=== PATIENT | female | born 1990 | race Caucasian/White ===

== ENCOUNTER 2017-08-31 20:56 | Emergency (ER) | payer OTHER ==
[2017-08-31 21:06] VITALS: BP 145/67; PULSE 98; TEMP 97.1; BMI 21.2
[2017-08-31] MEDS ORDERED: AMOX TR/POT CLAV 875MG/125MG TABLETS (FP) PO ONE (21:48)
[2017-08-31] MEDS ORDERED: IBUPROFEN 400 MG TABLET (FP) PO ONE ×2 (21:48→21:50)
[2017-08-31] MEDS ORDERED: guaiFENesin/CODEINE 10 ML UNIT-DOSE CUPS PO ONE (21:48)
[2017-08-31] MEDS ORDERED: AMOX TR/POT CLAV 875MG/125MG TABLETS (FP) ONE (21:50)
--- NOTE | 2017-08-31 21:55 | PDOC ---
History of Present Illness - General Chief Complaint: Cold Symptoms Stated Complaint: COLD SYMPTOMS Time Seen by Provider: 08/31/17 21:28 History Source: Patient Exam Limitations: No Limitations - History of Present Illness Initial Comments: 08/31/17 22:48 Patient is a 26-year-old female no past medical history who presents with 2 weeks of cough and headache. Patient states that she has tried Tylenol with little relief. She states that the cough is keeping her up at night. She admits to postnasal drip and congestion. She states that she also has a frontal headache due to her congestion. Denies fevers, chills, sore throat, ear pain, chest pain, shortness of breath, difficulty breathing, nausea, vomiting and diarrhea. Past History - Travel Traveled outside of the country in the last 30 days: No Close contact w/someone who was outside of country & ill: No - Past Medical History Allergies/Adverse Reactions: Allergies Allergy/AdvReac Type Severity Reaction Status Date / Time No Known Allergies Allergy Verified 08/31/17 21:06 Home Medications: Ambulatory Orders Amoxicillin/Potassium Clav [Augmentin 875-125 Tablet] 1 each PO BID #14 tablet 08/31/17 Guaifenesin AC [Robitussin AC] 10 ml PO HS #100 ud MDD 1 08/31/17 Ibuprofen 800 mg PO TID #30 tablet 08/31/17 - Suicide/Smoking/Psychosocial Hx Smoking History: Never smoked Have you smoked in the past 12 months: No Information on smoking cessation initiated: No Hx Alcohol Use: No Drug/Substance Use Hx: No Review of Systems - Review of Systems Able to Perform ROS?: Yes Comments:: 08/31/17 22:50 CONSTITUTIONAL: Absent: fever, chills, diaphoresis, generalized weakness, malaise, loss of appetite HEENT: Present: congestion, rhinorrhea Absent: throat pain, throat swelling, difficulty swallowing, mouth swelling, ear pain, eye pain, visual Changes CARDIOVASCULAR: Absent: chest pain, loss of consciousness, palpitations, irregular heart rate, peripheral edema RESPIRATORY: Present: cough Absent: cough, shortness of breath, dyspnea with exertion, orthopnea, wheezing, stridor, hemoptysis GASTROINTESTINAL: Absent: abdominal pain, abdominal distension, nausea, vomiting, diarrhea, constipation, melena, hematochezia GENITOURINARY: Absent: dysuria, frequency, urgency, hesitancy, hematuria, flank pain, genital pain MUSCULOSKELETAL: Absent: myalgia, arthralgia, joint swelling SKIN: Absent: rash, itching, pallor HEMATOLOGIC/IMMUNOLOGIC: Absent: easy bleeding, easy bruising, lymphadenopathy, frequent infections ENDOCRINE: Absent: unexplained weight gain, unexplained weight loss, heat intolerance, cold intolerance NEUROLOGIC: Present: headache Absent:focal weakness or paresthesias, dizziness, unsteady gait, seizure, mental status changes, bladder or bowel incontinence PSYCHIATRIC: Absent: anxiety, depression, suicidal or homicidal ideation, hallucinations. Is the patient limited Danish proficient: No *Physical Exam - Vital Signs Last Vital Signs Temp Pulse Resp BP Pulse Ox 97.1 F L 98 H 16 145/67 100 08/31/17 21:04 08/31/17 21:04 08/31/17 21:04 08/31/17 21:04 08/31/17 21:04 - Physical Exam Comments: 08/31/17 22:51 GENERAL: Well developed, well nourished. Awake and alert. No acute distress. Actively dry coughing HEENT: Normocephalic, atraumatic. TTP of the frontal sinuses. PERRLA, EOMI. No conjunctival pallor. Sclera are non-icteric. Moist mucous membranes. Oropharynx is clear. NECK: Supple. Full ROM. No JVD. Carotid pulses 2+ and symmetric, without bruits. No thyromegaly. No lymphadenopathy. CARDIOVASCULAR: Regular rate and rhythm. No murmurs, rubs, or gallops. Distal pulses are 2+ and symmetric. PULMONARY: No evidence of respiratory distress. Lungs clear to auscultation bilaterally. No wheezing, rales or rhonchi. ABDOMINAL: Soft. Non-tender. Non-distended. No rebound or guarding. No organomegaly. Normoactive bowel sounds. MUSCULOSKELETAL Normal range of motion at all joints. No bony deformities or tenderness. No CVA tenderness. EXTREMITIES: No cyanosis. No clubbing. No edema. No calf tenderness. SKIN: Warm and dry. Normal capillary refill. No rashes. No jaundice. NEUROLOGICAL: Alert, awake, appropriate. Cranial nerves 2-12 intact. No deficits to light touch and temperature in face, upper extremities and lower extremities. No motor deficits in the in face, upper extremities and lower extremities. Normoreflexic in the upper and lower extremities. Normal speech. Toes are down- going bilaterally. Gait is normal without ataxia. PSYCHIATRIC: Cooperative. Good eye contact. Appropriate mood and affect. Medical Decision Making - Medical Decision Making 08/31/17 22:51 Patient is a 26-year-old female with no past medical history, who [facility] with 2 weeks of sinusitis-like symptoms. Given length of symptoms we'll treat empirically with Augmentin at this time. Patient also given an albuterol inhaler to help with the cough. We'll discharge home at this time. Patient understands all discharge instructions and all questions were answered at this time. *DC/Admit/Observation/Transfer Diagnosis at time of Disposition: Sinusitis Qualifiers: Sinusitis location: frontal Chronicity: acute Recurrence: non-recurrent Qualified Code(s): J01.10 - Acute frontal sinusitis, unspecified - Discharge Dispostion Disposition: HOME Condition at time of disposition: Good Admit: No - Prescriptions Prescriptions: Amoxicillin/Potassium Clav [Augmentin 875-125 Tablet] 1 each PO BID #14 tablet Guaifenesin AC [Robitussin AC] 10 ml PO HS #100 ud MDD 1 Ibuprofen 800 mg PO TID #30 tablet - Referrals Referrals: Queta Mcgovern MD [Primary Care Provider] - Jelani Spicer MD [Staff Physician] - - Patient Instructions Printed Discharge Instructions: DI for Sinusitis Additional Instructions: You have a sinus infection. Please take the amoxicillin twice a day for one week. He may also take 800 mg of Motrin 3 times a day to help with any body aches. Please take the Mucinex you have at home during the day. You were also prescribed Robitussin AC. Please take this medication at nighttime to help with your cough. Do not drive or operate heavy machinery after taking this medication as it may make you sleepy. Please drink plenty of fluids and get plenty of rest. Follow up with her primary care doctor in 1 week. Return to the emergency department if you have worsening pain, difficulty breathing, shortness of breath, or any changes in her symptoms. Usted tiene reece infeccin sinusal. Por favor tome la amoxicilina dos veces al d a magnus reece semana. Tambin puede oz 800 mg de Motrin 3 veces al da para ayudar con cualquier dolor en el cuerpo. Por favor tome el Mucinex que tiene en casa magnus el da. Isidra le recetaron Robitussin AC. Por favor, tome kelsea medicamento por la noche para ayudar con la tos. No conduzca ni maneje maquinaria pesada despus de oz kelsea medicamento, ya que puede causarle yisel o. Por favor, tome muchos lquidos y descanse lo suficiente. Nikki un seguimiento con ovalle mdico de atencin primaria en 1 semana. Regrese al servicio de urgencias si tiene un empeoramiento del dolor, dificultad para respirar, dificultad para respirar o cualquier cambio en derek s ntomas. Print Language: BAHAMIAN - Post Discharge Activity Forms/Work/School Notes: Back to Work
[2017-08-31] MEDS ORDERED: guaiFENesin/CODEINE 5 ML UNIT-DOSE CUPS PO ONE (21:59)
== END 2017-08-31 22:06 | disposition home or self-care (01) ==
LOC: JERFT 20:56
DX: J01.10 Acute frontal sinusitis, unspecified (principal)
CPT/HCPCS: 99281-25

== ENCOUNTER 2018-08-18 20:27 | Emergency (ER) | payer OTHER ==
[2018-08-18 21:02] VITALS: BP 135/67; PULSE 97; TEMP 98.4; BMI 20.7
[2018-08-18 21:34] LABS: URINE APPEARANCE CLOUDY; URINE BILIRUBIN NEGATIVE (<2.0 mg/dL); URINE COLOR YELLOW; URINE GLUCOSE (UA) 1+ (NEGATIVE); URINE KETONE 1+ (NEGATIVE); URINE LEUK ESTERASE TRACE (NEGATIVE); URINE NITRITE NEGATIVE (NEGATIVE); URINE PROTEIN NEGATIVE (NEGATIVE); URINE UROBILINOGEN NEGATIVE mg/dL (0.2-1.0)
--- NOTE | 2018-08-18 21:59 | PDOC ---
History of Present Illness - General Chief Complaint: Pain Stated Complaint: 8 WEEKS ABD PAIN Time Seen by Provider: 08/18/18 21:47 - History of Present Illness Initial Comments: 08/19/18 00:21 27-year-old female complaining of pelvic pain for 1 day. Patient reports that she had a positive urine in [address] [place] [address]. Denies vaginal bleeding/vaginal discharge nausea, vomiting. Past History - Past Medical History Allergies/Adverse Reactions: Allergies Allergy/AdvReac Type Severity Reaction Status Date / Time No Known Allergies Allergy Verified 08/18/18 22:49 Home Medications: Ambulatory Orders NK [No Known Home Medication] 08/18/18 Prenat 115/Iron Fum/Folic/Dss [ 19 Tablet] 1 each PO DAILY 08/18/18 - Suicide/Smoking/Psychosocial Hx Smoking History: Never smoked Have you smoked in the past 12 months: No Hx Alcohol Use: No Drug/Substance Use Hx: No Review of Systems - Review of Systems Able to Perform ROS?: Yes Is the patient limited Yoruba proficient: No Constitutional: No: Symptoms Reported, See HPI, Chills, Diaphoresis, Fever, Loss of Appetite, Malaise, Night Sweats, Weakness, Weight Stable, Unintentional Wgt. Loss, Unexplained wgt Loss, Other ABD/GI: No: Symptoms Reported, See HPI, Abdominal Distended, Abd. Pain w/ defecation, Blood Streaked Bowels, Constipated, Diarrhea, Difficulty Swallowing , Nausea, Poor Appetite, Poor Fluid Intake, Rectal Bleeding, Vomiting, Indigestion, Abdominal cramping, Tarry Stools, Other : Yes: Other (pelvic pain). No: Symptoms Reported, See HPI, Burning, Dysuria , Discharge, Frequency, Flank Pain, Hematuria, Incontinence, Pain, Urgency, Testicular Mass, Testicular Swelling, Lesions, Testicular Pain *Physical Exam - Vital Signs Last Vital Signs Temp Pulse Resp BP Pulse Ox 98.4 F 97 H 20 135/67 96 08/18/18 20:58 08/18/18 20:58 08/18/18 20:58 08/18/18 20:58 08/18/18 20:58 Moderate Sedation - Procedure Monitoring Vital Signs: Procedure Monitoring Vital Signs Temperature 98.4 F 08/18/18 20:58 Pulse Rate 97 H 08/18/18 20:58 Respiratory Rate 20 08/18/18 20:58 Blood Pressure 135/67 08/18/18 20:58 O2 Sat by Pulse Oximetry (%) 96 08/18/18 20:58 ED Treatment Course - LABORATORY CBC & Chemistry Diagram: 08/18/18 22:48 - ADDITIONAL ORDERS Additional order review: Laboratory Results 08/18/18 21:13 Urine Color Yellow Urine Appearance Cloudy Urine pH 6.0 Ur Specific [place] 1.024 Urine Protein Negative Urine Glucose (UA) 1+ H Urine Ketones 1+ H Urine Blood Negative Urine Nitrite Negative Urine Bilirubin Negative Urine Urobilinogen Negative Ur Leukocyte Esterase Trace *DC/Admit/Observation/Transfer Diagnosis at time of Disposition: Intrauterine normal Qualifiers: Trimester: first trimester Qualified Code(s): Z34.91 - Encounter for supervision of normal , unspecified, first trimester - Discharge Dispostion Disposition: HOME - Referrals Referrals: Daiana Landeros CNM [Primary Care Provider] - Call tomorrow - Patient Instructions Printed Discharge Instructions: Common Discomforts and Bodily Changes During Additional Instructions: Drink plenty of fluids. Take yourprenatal vitamins. follow up with the DIRECTOR FRAUD as soon as possible. Additional Instructions: * Please call your personal physician to report your Emergency Department visit and to report your progress, if any. * If there is no improvement in symptoms in 2 days call your physician. * Return to the Emergency Department for any worsening symptoms. - Post Discharge Activity
[2018-08-18 22:06] LABS: EPI CELLS RARE /HPF (FEW); URINE BACTERIA RARE /hpf (NONE SEEN); URINE MUCUS RARE
[2018-08-18 22:54] LABS: BASO % 0.4 % (0-2.0); EOS % 1.1 % (0-4.5); HEMATOCRIT 32.8 % (32.4-45.2); HEMOGLOBIN 11.3 GM/dL (10.7-15.3); LYMPH % 17.6 % (8-40); MCH 28.3 pg (25.7-33.7); MCHC 34.5 g/dl (32.0-36.0); MEAN CELL VOLUME 82.1 fl (80-96); MEAN PLT VOLUME 9.6 fl (7.5-11.1); MONO % 8.9 % (3.8-10.2); PLATELET COUNT 186 K/MM3 (134-434); RBC 3.99 M/mm3 (3.60-5.2); RDW 13.3 % (11.6-15.6); WHITE BLOOD COUNT 9.9 K/mm3 (4.0-10.0)
--- NOTE | 2018-08-19 00:16 | PDOC ---
*Physical Exam - Vital Signs Last Vital Signs Temp Pulse Resp BP Pulse Ox 98.4 F 97 H 20 135/67 96 08/18/18 20:58 08/18/18 20:58 08/18/18 20:58 08/18/18 20:58 08/18/18 20:58 ED Treatment Course - LABORATORY CBC & Chemistry Diagram: 08/18/18 22:48 - ADDITIONAL ORDERS Additional order review: Laboratory Results 08/18/18 08/18/18 08/18/18 22:45 21:13 21:08 Beta HCG, Quant 700730.7 Urine Color Yellow Urine Appearance Cloudy Urine pH 6.0 Ur Specific [place] 1.024 Urine Protein Negative Urine Glucose (UA) 1+ H Urine Ketones 1+ H Urine Blood Negative Urine Nitrite Negative Urine Bilirubin Negative Urine Urobilinogen Negative Ur Leukocyte Esterase Trace Urine WBC (Auto) 4 Urine RBC (Auto) 1 Ur Epithelial Cells Rare Urine Bacteria Rare Urine Mucus Rare Blood Type O POSITIVE Antibody Screen Negative 08/18/18 22:48 RBC 3.99 MCV 82.1 MCHC 34.5 RDW 13.3 MPV 9.6 Neutrophils % 72.0 Lymphocytes % 17.6 Monocytes % 8.9 Eosinophils % 1.1 Basophils % 0.4 Medical Decision Making - Medical Decision Making 08/19/18 00:13 27 yo female with pelvic pain has pelvic US reveals a SL IUP of 14 weeks, blood type o positive and bhcg>100,000 plan followup with commercial loan closer for continued care I agree with the nurse practitioner's assessment and management of the case *DC/Admit/Observation/Transfer Diagnosis at time of Disposition: Intrauterine normal - Discharge Dispostion Disposition: HOME - Referrals Referrals: Daiana Landeros CNM [Primary Care Provider] - Call tomorrow - Patient Instructions Printed Discharge Instructions: Common Discomforts and Bodily Changes During Additional Instructions: Drink plenty of fluids. Take yourprenatal vitamins. follow up with the SPIRAL TUBE WINDER HELPER as soon as possible. Additional Instructions: * Please call your personal physician to report your Emergency Department visit and to report your progress, if any. * If there is no improvement in symptoms in 2 days call your physician. * Return to the Emergency Department for any worsening symptoms. - Post Discharge Activity
== END 2018-08-19 00:43 | disposition home or self-care (01) ==
LOC: JER 20:27
DX: O26.892 Other specified pregnancy related conditions, second trimester (principal); R10.2 Pelvic and perineal pain; Z3A.14 14 weeks gestation of pregnancy
CPT/HCPCS: 36415; 76801-TC; 81003; 81015; 84702; 85025; 86850; 86900; 86901; 99283-25

== ENCOUNTER 2019-02-10 16:40 | Inpatient (IN) | payer OTHER ==
--- NOTE | 2019-02-10 16:54 | HP ---
Past Medical History - Admission History of Present Illness: 28 y/o with SIUP at 39.1 weeks here for IOL 2/2 A2GDM. Pt started on glyburide 2.5 mg on 02/03/19 for uncontrolled GDM. Pt also carrier for CF, FOB negative. Intermediate (1:493) for DS on quad screen, pt missed NT scan. otherwise uncomplicated. History Source: Patient, Medical Record Limitations to Obtaining History: No Limitations - Past Medical History Cardiovascular: No: HTN Pulmonary: No: Asthma, COPD Gastrointestinal: No: Gastritis, GERD Hepatobiliary: No: Hepatitis B, Hepatitis C Renal/: No: UTI Reproductive: No: Ectopic ...: 1 ...Para: 0 ...EDC by Dates: 02/16/19 Heme/Onc: No: Anemia Infectious Disease: No: HIV, MRSA, STD's - Past Surgical History Hx Myomectomy: No Hx Transabdominal Cerclage: No - Smoking History Have you smoked in the past 12 months: No - Alcohol/Substance Use Hx Alcohol Use: No - Social History Usual Living Arrangement: Yes: With Spouse ADL: Independent History of Recent Travel: No Home Medications - Allergies Allergies/Adverse Reactions: Allergies Allergy/AdvReac Type Severity Reaction Status Date / Time No Known Allergies Allergy Verified 08/18/18 22:49 - Home Medications Home Medications: Ambulatory Orders NK [No Known Home Medication] 08/18/18 Prenat 115/Iron Fum/Folic/Dss [ 19 Tablet] 1 each PO DAILY 08/18/18 Review of Systems - Review of Systems Constitutional: reports: No Symptoms Eyes: reports: No Symptoms HENT: reports: No Symptoms Neck: reports: No Symptoms Cardiovascular: reports: No Symptoms Respiratory: reports: No Symptoms Gastrointestinal: reports: No Symptoms Genitourinary: reports: No Symptoms Breasts: reports: No Symptoms Reported Musculoskeletal: reports: No Symptoms Integumentary: reports: No Symptoms Neurological: reports: No Symptoms Endocrine: reports: No Symptoms Hematology/Lymphatic: reports: No Symptoms Psychiatric: reports: No Symptoms Problem List - Problems (1) Intrauterine normal Code(s): Z34.90 - ENCNTR FOR SUPRVSN OF NORMAL , UNSP, UNSP TRIMESTER Qualifiers: Trimester: first trimester Qualified Code(s): Z34.91 - Encounter for supervision of normal , unspecified, first trimester (2) Gestational diabetes mellitus (GDM) affecting first Code(s): O24.419 - GESTATIONAL DIABETES MELLITUS IN , UNSP CONTROL Assessment/Plan for IOL cervidil - to recheck 12 hours check BGs post prandial and fasting until active labor, then will check Q1-2 diabetic diet OK if tracing stable with 2 hours cervidil GBS neg
[2019-02-10] MEDS ORDERED: DINOPROSTONE 10 MG VAGINAL SUPPOSITORY VG ONE (17:14)
[2019-02-10 17:39] VITALS: BMI 26.1
[2019-02-10 19:14] LABS: BASO % 0.4 % (0-2.0); EOS % 0.6 % (0-4.5); HEMATOCRIT 34.3 % (32.4-45.2); HEMOGLOBIN 11.3 GM/dL (10.7-15.3); LYMPH % 12.1 % (8-40); MCH 27.5 pg (25.7-33.7); MCHC 32.9 g/dl (32.0-36.0); MEAN CELL VOLUME 83.4 fl (80-96); MONO % 9.3 % (3.8-10.2); NEUT % 77.6 % (42.8-82.8); PLATELET COUNT 131 K/MM3 (134-434); RBC 4.12 M/mm3 (3.60-5.2); RDW 15.7 % (11.6-15.6); WHITE BLOOD COUNT 10.4 K/mm3 (4.0-10.0)
[2019-02-10 19:19] LABS: INR 1.05 (0.83-1.09); PROTHROMBIN TIME (PATIENT) 12.4 SEC (9.7-13.0)
[2019-02-10 19:21] LABS: ACTIVATED PTT 28.8 SECONDS (25.2-36.5)
[2019-02-10 19:31] LABS: BLOOD UREA NITROGEN 5.2 mg/dL (7-18); CALCIUM 9.1 mg/dL (8.5-10.1); CREATININE 0.5 mg/dL (0.55-1.3); POTASSIUM 3.9 mmol/L (3.5-5.1)
[2019-02-10] MEDS ORDERED: BUTORPHANOL TARTRATE 1 MG/ML VIAL IVPB ONE (21:46)
[2019-02-10] MEDS ORDERED: PROMETHAZINE HCL 25 MG/1 ML VIAL IVPUSH ONE (21:46)
[2019-02-10] MEDS ORDERED: LACTATED RINGERS SOLUTION 1,000 ML IV ONE (23:45)
[2019-02-11] MEDS ORDERED: PROMETHAZINE HCL 25 MG/1 ML VIAL ONE (02:33)
[2019-02-11] MEDS ORDERED: BUTORPHANOL TARTRATE 2 MG/ML VIAL ONE (02:33)
[2019-02-11] MEDS ORDERED: LACTATED RINGERS SOLUTION 1,000 ML IV SCH (03:30)
--- NOTE | 2019-02-11 09:50 | PN ---
Ante-Partal Exam - Subjective Subjective: Pt had some contractions overnight with cervidil. Cervidil removed 5:30 am. Vital Signs: Vital Signs Temperature 98.1 F 02/11/19 08:00 Pulse Rate 76 02/11/19 08:00 Respiratory Rate 18 02/11/19 08:00 Blood Pressure 117/66 02/11/19 08:00 O2 Sat by Pulse Oximetry (%) Bleeding: No Headache: No Visual changes: No Right upper quadrant pain: No - Contractions Contractions: Yes Regularity: Irregular - Exam during Labor Heart Rate: 140 Variability: Moderate Category: I Monitor Accelerations: Present Monitor Decelerations: None Exam: Vaginal Dilatation (cm): 3 Effacement (%): 70 Amniotic Membrane Status: Intact Presentation: Vertex Station: -1 - Assessment/Plan Assessment/Plan: 28 y/o with SIUP at 39.2 weeks, IOL for A2GDM s/p cervidil to start pitocin to begin checking BGs every 2 hours epidural PRN
[2019-02-11] MEDS ORDERED: OXYTOCIN 30 UNITS in 0.9% NS 30 UNIT/500 ML INFUS.BAG IVPB ONE (09:51)
[2019-02-11] MEDS ORDERED: ELECTROLYTE-148 SOLN 1,000 ML IV SCH (10:00)
[2019-02-11] MEDS ORDERED: OXYTOCIN 30 UNITS in 0.9% NS 30 UNIT/500 ML INFUS.BAG IVPB SCH (10:00)
[2019-02-11] MEDS ORDERED: DEXTROSE 5%-LACTATED RINGERS 1,000 ML IV SCH (17:45)
[2019-02-11] MEDS ORDERED: BUPIVACAINE HCL/PF 0.25% (2.5MG/ML) 10 ML VIAL ONE ×2 (19:19→20:30)
[2019-02-11] MEDS ORDERED: FENTANYL/BUPIVACAINE/NS/PF - PCEA - 50 ML DISP.SYRIN EP ONE ×2 (19:20→23:57)
[2019-02-11] MEDS ORDERED: NALOXONE HCL 0.4 MG/ML VIAL IVPUSH PRN (19:28)
--- NOTE | 2019-02-11 19:28 | PN ---
Ante-Partal Exam - Subjective Subjective: Pitocin at 14 pt feeling some low back pain Vital Signs: Vital Signs Temperature 99.2 F 02/11/19 18:00 Pulse Rate 78 02/11/19 18:00 Respiratory Rate 20 02/11/19 18:00 Blood Pressure 108/60 02/11/19 18:00 O2 Sat by Pulse Oximetry (%) Bleeding: No Headache: No Visual changes: No Right upper quadrant pain: No - Contractions Contractions: Yes Regularity: Regular Intensity: Mod/Strong - Exam during Labor Heart Rate: 140 Variability: Moderate Category: I Monitor Accelerations: Present Monitor Decelerations: None Exam: Vaginal Amniotic Membrane Status: Intact - Assessment/Plan Assessment/Plan: Discussed options with pt plan for AROM however, pt desires epidural first to get epidural then AROM and continue pitocin BGMs Q2h
[2019-02-11] MEDS: FENTANYL/BUPIVACAINE/NS/PF - PCEA - 50 ML DISP.SYRIN EP SCH (19:55)
--- NOTE | 2019-02-11 20:15 | PN ---
Ante-Partal Exam - Subjective Subjective: Pt s/p epidural Vital Signs: Vital Signs Temperature 99.2 F 02/11/19 18:00 Pulse Rate 78 02/11/19 18:00 Respiratory Rate 20 02/11/19 18:00 Blood Pressure 108/60 02/11/19 18:00 O2 Sat by Pulse Oximetry (%) Bleeding: No Headache: No Visual changes: No Right upper quadrant pain: No Pain (scale 1-10): 0 - Contractions Contractions: Yes Regularity: Regular Intensity: Mod/Strong - Exam during Labor Heart Rate: 140 Variability: Moderate Category: I Monitor Accelerations: Present Monitor Decelerations: None Exam: Vaginal Dilatation (cm): 4 Effacement (%): 70 Amniotic Membrane Status: Ruptured (AROM) Amniotic Fluid: Clear Presentation: Vertex Station: -1 - Assessment/Plan Assessment/Plan: s/p AROM for clear Continue pitocin
--- NOTE | 2019-02-12 00:20 | PN ---
Ante-Partal Exam - Subjective Subjective: Pt comfortable with epidural. Vital Signs: Vital Signs Temperature 98.7 F 02/11/19 23:59 Pulse Rate 105 H 02/12/19 00:00 Respiratory Rate 20 02/12/19 00:00 Blood Pressure 121/65 02/12/19 00:00 O2 Sat by Pulse Oximetry (%) 100 02/12/19 00:00 Bleeding: Yes Bleeding Description: Mild Headache: No Visual changes: No Right upper quadrant pain: No - Contractions Contractions: Yes Regularity: Regular Intensity: Mod/Strong - Exam during Labor Heart Rate: 140 Variability: Moderate Category: II Monitor Accelerations: Present Monitor Decelerations: Variable (and late decelerations) Exam: Vaginal Dilatation (cm): 9 Effacement (%): 100 Amniotic Membrane Status: Ruptured Presentation: Vertex Station: 0 - Intrapartum Hemorrhage Risk Medium Risk Factors: None High Risk Factors: None Risk Score: 0 Risk Level: Low Risk - Assessment/Plan Assessment/Plan: GDMA2, IOL continue pitocin, s/p AROM pt now 9cm dilated, re evaluate 1-2 hours to start pushing BGM 78 after juice (was 66 prior) continue Q2 monitoring anticipate
[2019-02-12] MEDS ORDERED: OXYTOCIN 20 UNITS in 0.9% NS 20 UNIT/1,000 ML INFUS.BAG IV ONE (00:34)
--- NOTE | 2019-02-12 03:49 | PN ---
Delivery - Delivery Vaginal Delivery: No Problems Maneuvers: Andrew and subprapubic pressure given Episiotomy/Laceration: 1st degree (with left sulcal laceration) EBL (cc): 450 Delivery, Single - Stages of Labor Date of Delivery: 02/12/19 Date Placenta Delivered: 02/12/19 Placenta: Yes: Spontaneous - Condition of Infant Ironing Machine Operator/Senior Licensing Manager Present: No Infant Gender: Male Position: Right, OA - 1 Minute Total Score: 8 5 Minutes Total Score: 9 - Feeding Plan Initial Plan: Exclusive throughout hospitalization Remarks - Remarks Remarks: Delivery of live male infant from JONAS position anterior shoulder (left) delivered with difficulty, dystocia noted, andrew maneuver and suprapubic pressure applied to deliver shoulder after delivery of remainder of baby, baby taken to warmer immediately to be assessed by nursery staff Apgars 8/9 both arms moving without issue 1st degree and left sulcal laceration noted, repaired with 2-0 chromic and 2-0 vicryl suture without issue excellent hemostatic and cosmetic repair EBL 450 mom stable baby to well baby nursery oxytocin infusing after delivery
[2019-02-12] MEDS ORDERED: BISACODYL 10 MG SUPP.RECT RC PRN (04:01)
[2019-02-12] MEDS ORDERED: BENZOCAINE 28 GM HEMORRHOIDAL OINTMENT TP PRN (04:01)
[2019-02-12] MEDS ORDERED: BENZOCAINE 20% 57 GM BOTTLE TP PRN (04:01)
[2019-02-12] MEDS ORDERED: METHYLERGONOVINE MALEATE 0.2 MG/1 ML AMP IM PRN (04:01)
[2019-02-12] MEDS ORDERED: WITCH HAZEL 50% (TUCKS) 40 PAD/JAR PAD TP PRN (04:01)
[2019-02-12] MEDS ORDERED: OXYTOCIN 20 UNITS in 0.9% NS 20 UNIT/1,000 ML INFUS.BAG IV SCH (04:15)
[2019-02-12 06:29] LABS: HEMATOCRIT 30.8 % (32.4-45.2); MCH 27.3 pg (25.7-33.7); MCHC 32.4 g/dl (32.0-36.0); MEAN CELL VOLUME 84.5 fl (80-96); PLATELET COUNT 131 K/MM3 (134-434); RBC 3.65 M/mm3 (3.60-5.2); RDW 16.2 % (11.6-15.6); WHITE BLOOD COUNT 16.4 K/mm3 (4.0-10.0)
[2019-02-12 06:51] LABS: ACTIVATED PTT 31.4 SECONDS (25.2-36.5)
--- NOTE | 2019-02-12 07:47 | PN ---
Progress Note, Physician Chief Complaint: s/p with epidural anesthesia for pain control during labor History of Present Illness: Baby boy delivered at 0313 on 02/12/19 uneventful. Patient complaining of pain in the back afterwards near insertion site of epidural. - Current Medication List Current Medications: Active Medications Acetaminophen (Tylenol -) 650 mg PO Q3H PRN PRN Reason: PAIN Benzocaine (Americaine 20% [place] -) 1 spray TP PRN PRN PRN Reason: PAIN Benzocaine (Americaine Ointment -) 1 applic TP PRN PRN PRN Reason: PAIN Bisacodyl (Dulcolax Suppository -) 10 mg RC PRN PRN PRN Reason: CONSTIPATION Fentanyl/Bupivacaine/Sodium Chlor (Bupivicaine 0.125%/Fentanyl 2mcg/Ml Pcea) 50 ml EP ASDIR [facility]; Protocol Last Admin: 02/11/19 19:55 Dose: 50 ml Ferrous Sulfate (Feosol -) 325 mg PO TIDCM [facility] Parenteral Electrolytes (Plasma-Lyte 148 -) 1,000 mls @ 125 mls/hr IV ASDIR [facility] Last Admin: 02/11/19 10:00 Dose: 125 mls/hr Oxytocin/Sodium Chloride (Normal Saline+20 Units Oxytocin -) 20 unit in 1,000 mls @ 125 mls/hr IV ASDIR [facility] Ibuprofen (Motrin -) 600 mg PO Q4H PRN PRN Reason: PAIN Methylergonovine Maleate (Methergine Injection -) 0.2 mg IM Q4H PRN PRN Reason: EXCESSIVE BLEEDING (L&D) Naloxone HCl (Narcan -) 0.4 mg IVPUSH PRN PRN PRN Reason: Sedation Multivit/Folic Acid/Iron ( Vitamins (Sjr) -) 1 tab PO DAILY [facility] Senna/Docusate Sodium (Pericolace -) 2 tablet PO HS PRN PRN Reason: CONSTIPATION Witch Jessica/Glycerin (Tucks Pads -) 1 pad TP PRN PRN PRN Reason: PAIN - Objective Vital Signs: Vital Signs Temperature 99.6 F 02/12/19 05:05 Pulse Rate 94 H 02/12/19 05:05 Respiratory Rate 20 02/12/19 05:05 Blood Pressure 114/64 02/12/19 05:05 O2 Sat by Pulse Oximetry (%) 100 02/12/19 04:35 Constitutional: Yes: Well Nourished, No Distress Cardiovascular: Yes: WNL Respiratory: Yes: WNL Gastrointestinal: Yes: WNL Neurological: Yes: Numbness (numbness lateral aspect of right thigh, otherwise sensation intact and symmetrical) ...Motor Strength: WNL Labs: CBC, BMP 02/12/19 06:20 02/10/19 18:30 INR, PTT INR 1.05 (0.83-1.09) 02/10/19 18:30 Assessment/Plan CBC and coags ordered, all within normal limits. Q1 hour neuro checks ordered for four hours, advised patient to notify nurse if pain, numbness gets worse or if starting to experience urinary retention or weakness. Will reevaluate Catheter removed once coaguation studies confirmed normal. Tip intact.
[2019-02-12 08:00] LABS: INR 1.07 (0.83-1.09); PROTHROMBIN TIME (PATIENT) 12.6 SEC (9.7-13.0)
[2019-02-12] MEDS: PRENATAL VITAMINS W/ FOLIC ACID TABLET (FP) PO SCH (09:01)
[2019-02-12] MEDS: FERROUS SO4 325 MG TABLET (FP) PO SCH ×3 (09:01→17:19)
[2019-02-12] MEDS: FENTANYL/BUPIVACAINE/NS/PF - PCEA - 50 ML DISP.SYRIN EP SCH (22:18)
[2019-02-12] MEDS: IBUPROFEN 600 MG TABLET (FP) PO PRN (23:41)
[2019-02-12] MEDS: ACETAMINOPHEN 325 MG TABLET (FP) PO PRN (23:41)
--- NOTE | 2019-02-13 07:27 | PN ---
Post Progress Note - Subjective Subjective: 28 yo status post vaginal delivery seen and evaluated. Doing well Post Day: 1 Type of Delivery: Vital Signs: Vital Signs Temperature 98.5 F 02/13/19 01:47 Pulse Rate 104 H 02/13/19 01:47 Respiratory Rate 18 02/13/19 01:47 Blood Pressure 103/59 L 02/13/19 01:47 O2 Sat by Pulse Oximetry (%) 100 02/12/19 04:35 Breast Exam: Yes: Soft Uterus: Yes: Fundus Firm Abdomen/GI: Yes: Abdomen soft, Tolerating PO Lochia: Yes: Rubra Lochia, amount: Moderate Extremities: Yes: Calves non-tender Activity: Ambulating - Labs Labs: CBC WBC 16.4 K/mm3 (4.0-10.0) H 02/12/19 06:20 RBC 3.65 M/mm3 (3.60-5.2) 02/12/19 06:20 Hgb 10.0 GM/dL (10.7-15.3) L 02/12/19 06:20 Hct 30.8 % (32.4-45.2) L 02/12/19 06:20 MCV 84.5 fl (80-96) 02/12/19 06:20 MCH 27.3 pg (25.7-33.7) 02/12/19 06:20 MCHC 32.4 g/dl (32.0-36.0) 02/12/19 06:20 RDW 16.2 % (11.6-15.6) H 02/12/19 06:20 Plt Count 131 K/MM3 (134-434) L 02/12/19 06:20 MPV 10.0 fl (7.5-11.1) 02/12/19 06:20 Absolute Neuts (auto) 8.1 K/mm3 (1.5-8.0) H 02/10/19 18:30 Neutrophils % 77.6 % (42.8-82.8) 02/10/19 18:30 Lymphocytes % 12.1 % (8-40) D 02/10/19 18:30 Monocytes % 9.3 % (3.8-10.2) 02/10/19 18:30 Eosinophils % 0.6 % (0-4.5) 02/10/19 18:30 Basophils % 0.4 % (0-2.0) 02/10/19 18:30 Nucleated RBC % 0 % (0-0) 02/10/19 18:30 Problem List - Problems (1) Status post normal vaginal delivery Code(s): FOQ6446 - Assessment/Plan Status post vaginal delivery Back pain Continue analgesia
[2019-02-13] MEDS: FERROUS SO4 325 MG TABLET (FP) PO SCH ×3 (08:16→17:13)
[2019-02-13 08:54] LABS: BASO % 0.4 % (0-2.0); EOS % 1.6 % (0-4.5); HEMOGLOBIN 7.4 GM/dL (10.7-15.3); LYMPH % 15.7 % (8-40); MCH 27.3 pg (25.7-33.7); MCHC 32.4 g/dl (32.0-36.0); MEAN CELL VOLUME 84.2 fl (80-96); MEAN PLT VOLUME 10.6 fl (7.5-11.1); MONO % 8.7 % (3.8-10.2); NEUT % 73.6 % (42.8-82.8); PLATELET COUNT 127 K/MM3 (134-434); RBC 2.73 M/mm3 (3.60-5.2); RDW 16.7 % (11.6-15.6); WHITE BLOOD COUNT 14.1 K/mm3 (4.0-10.0)
[2019-02-13] MEDS: PRENATAL VITAMINS W/ FOLIC ACID TABLET (FP) PO SCH (09:18)
[2019-02-13] MEDS: IBUPROFEN 600 MG TABLET (FP) PO PRN ×2 (10:21→19:36)
[2019-02-13] MEDS: ACETAMINOPHEN 325 MG TABLET (FP) PO PRN ×2 (10:22→19:36)
[2019-02-13] MEDS ORDERED: SENNOSIDES/DOCUSATE COMBO (SENNA PLUS) TABLET (UD) PO PRN (22:00)
[2019-02-13 22:59] VITALS: TEMP 99.1
--- NOTE | 2019-02-14 02:24 | PN ---
Post Progress Note - Subjective Subjective: Came to evaluate pt due to c/o fevers/chills and some tachycardia noted on vitals. Pt AAO, non toxic appearing upon my entry to room. No CO CP/SOB. Hgb was 7.4 this a.m. Does say her perineum is sore. Type of Delivery: Vital Signs: Vital Signs Temperature 99.1 F 02/13/19 22:45 Pulse Rate 119 H 02/13/19 22:45 Respiratory Rate 18 02/13/19 22:45 Blood Pressure 103/43 L 02/13/19 22:45 O2 Sat by Pulse Oximetry (%) 100 02/12/19 04:35 Uterus: Yes: Fundus Firm Abdomen/GI: Yes: Abdomen soft Lochia: Yes: Rubra Lochia, amount: Small Extremities: Yes: Edema (1+ LE edema, nonpitting) Perineum: Yes: Laceration Activity: Ambulating - Labs Labs: CBC WBC 14.1 K/mm3 (4.0-10.0) H 02/13/19 07:56 RBC 2.73 M/mm3 (3.60-5.2) L 02/13/19 07:56 Hgb 7.4 GM/dL (10.7-15.3) L 02/13/19 07:56 Hct 23.0 % (32.4-45.2) L D 02/13/19 07:56 MCV 84.2 fl (80-96) 02/13/19 07:56 MCH 27.3 pg (25.7-33.7) 02/13/19 07:56 MCHC 32.4 g/dl (32.0-36.0) 02/13/19 07:56 RDW 16.7 % (11.6-15.6) H 02/13/19 07:56 Plt Count 127 K/MM3 (134-434) L 02/13/19 07:56 MPV 10.6 fl (7.5-11.1) 02/13/19 07:56 Absolute Neuts (auto) 10.4 K/mm3 (1.5-8.0) H 02/13/19 07:56 Neutrophils % 73.6 % (42.8-82.8) 02/13/19 07:56 Lymphocytes % 15.7 % (8-40) D 02/13/19 07:56 Monocytes % 8.7 % (3.8-10.2) 02/13/19 07:56 Eosinophils % 1.6 % (0-4.5) D 02/13/19 07:56 Basophils % 0.4 % (0-2.0) 02/13/19 07:56 Nucleated RBC % 0 % (0-0) 02/13/19 07:56 Problem List - Problems (1) Intrauterine normal Code(s): Z34.90 - ENCNTR FOR SUPRVSN OF NORMAL , UNSP, UNSP TRIMESTER Qualifiers: Trimester: first trimester Qualified Code(s): Z34.91 - Encounter for supervision of normal , unspecified, first trimester (2) Gestational diabetes mellitus (GDM) affecting first Code(s): O24.419 - GESTATIONAL DIABETES MELLITUS IN , UNSP CONTROL (3) Anemia Code(s): D64.9 - ANEMIA, UNSPECIFIED Assessment/Plan PPD#2 s/p normal tachycardia, likley multifactorial but anemia likely biggest factor check CBC in a.m. if < 7.0 will transfuse PRBC if tachycardia doesn't resolve with resolution of anemia, will consider workup for PE regular diet otherwise routine care
[2019-02-14] MEDS: FERROUS SO4 325 MG TABLET (FP) PO SCH ×2 (07:49→12:27)
[2019-02-14] MEDS: IBUPROFEN 600 MG TABLET (FP) PO PRN (07:51)
[2019-02-14] MEDS: ACETAMINOPHEN 325 MG TABLET (FP) PO PRN (07:52)
[2019-02-14 07:53] LABS: BASO % 0.5 % (0-2.0); EOS % 1.3 % (0-4.5); HEMATOCRIT 21.7 % (32.4-45.2); HEMOGLOBIN 7.3 GM/dL (10.7-15.3); LYMPH % 14.7 % (8-40); MCH 28.2 pg (25.7-33.7); MCHC 33.5 g/dl (32.0-36.0); MEAN CELL VOLUME 84.2 fl (80-96); MEAN PLT VOLUME 10.2 fl (7.5-11.1); MONO % 9.6 % (3.8-10.2); NEUT % 73.9 % (42.8-82.8); RBC 2.57 M/mm3 (3.60-5.2); RDW 16.5 % (11.6-15.6)
[2019-02-14 08:34] LABS: PLATELET COUNT 127 K/MM3 (134-434)
[2019-02-14 08:57] VITALS: BP 104/66; PULSE 109
[2019-02-14] MEDS: PRENATAL VITAMINS W/ FOLIC ACID TABLET (FP) PO SCH (09:59)
--- NOTE | 2019-02-14 10:55 | DS ---
Physical Exam-GLOBAL IMPLEMENTATION MANAGER Vital Signs: Vital Signs Temperature 99.1 F 02/13/19 22:45 Pulse Rate 109 H 02/14/19 08:53 Respiratory Rate 18 02/14/19 08:53 Blood Pressure 104/66 02/14/19 08:53 O2 Sat by Pulse Oximetry (%) 100 02/12/19 04:35 Constitutional: Yes: Well Nourished, No Distress, Calm Eyes: Yes: Conjunctiva Clear, Occular Prosthesis Neck: Yes: Supple Cardiovascular: Yes: Tachycardia Respiratory: Yes: Regular Gastrointestinal: Yes: Normal Bowel Sounds, Soft ....Post : Yes: Uterus firm, Uterus non-tender Extremities: No: Calf Tenderness Edema: LLE: 1+, RLE: 1+ (nonpitting edema b/l, nontender ) Neurological: Yes: Alert, Oriented Psychiatric: Yes: Alert, Oriented Labs: CBC, BMP 02/14/19 06:41 02/10/19 18:30 Delivery - Delivery Vaginal Delivery: No Problems Maneuvers: Andrew and subprapubic pressure given Type of Anesthesia: Epidural Episiotomy/Laceration: 1st degree EBL (cc): 450 Delivery, Single - Stages of Labor Date 1st Stage Initiatied: 02/11/19 Time 1st Stage Initiated: 19:00 Date 2nd Stage Initiated: 02/12/19 Time 2nd Stage Initiated: 01:30 Date of Delivery: 02/12/19 Time of Delivery: 03:13 Time Placenta Delivered: 03:20 Placenta: Yes: Spontaneous - Condition of Ophthalmology Assistant/Senior Ui Software Engineer Present: No Infant Gender: Male Weight: 7 lb 5 oz Position: Right, OA Total Hours ROM (Hrs/Mins): 7 hours 15 minutes - 1 Minute Total Score: 8 5 Minutes Total Score: 9 - Feeding Plan Initial Plan: Exclusive throughout hospitalization Discharge Summary Reason For Visit: INDUCTION Current Active Problems Anemia (Acute) Gestational diabetes mellitus (GDM) affecting first (Acute) Status post normal vaginal delivery (Acute) Hospital Course: Pt admitted on 02/10/19 for labor induction due to gestational DM per MFM recommendations at 39.1 weeks. Pt had a on 02/12/19 complicated by a shoulder dystocia and bleeding due to vaginal laceration. The patient was anemic post , Hgb stable at 7.3 on 02/14, pt tachycardic but otherwise asymptomatic. She denied any CP/SOB/light headed or dizziness on day of discharge. Pt was stable and discharged home on post day 2. Condition: Good - Instructions Referrals: Danitza Watters DO [Staff Physician] - 1 Month (4-6 weeks) Disposition: HOME - Home Medications Comprehensive Discharge Medication List: Ambulatory Orders Prenat 115/Iron Fum/Folic/Dss [ 19 Tablet] 1 each PO DAILY 08/18/18 Ferrous Sulfate 325 mg PO DAILY 02/10/19 Glyburide 2.5 mg PO ACBK 02/10/19
== END 2019-02-14 13:35 | disposition home or self-care (01) | DRG 560 ==
LOC: JLDR 16:40 → J3W 02-12 04:57
PROVIDERS: ADMIT Obstetrics & Gynecology; ATTEND Obstetrics & Gynecology
PROC: 10E0XZZ Delivery of Products of Conception, External Approach (ICD-10-PCS; principal; 2019-02-12)
PROC: 0HQ9XZZ Repair Perineum Skin, External Approach (ICD-10-PCS; 2019-02-12)
DX: O24.425 Gestational diabetes mellitus in childbirth, controlled by oral hypoglycemic drugs (principal); O70.0 First degree perineal laceration during delivery; O90.81 Anemia of the puerperium; D64.9 Anemia, unspecified; O66.0 Obstructed labor due to shoulder dystocia; Z3A.39 39 weeks gestation of pregnancy; Z37.0 Single live birth
CPT/HCPCS: 36415; 59409; 80048; 82962; 85025; 85027; 85610; 85730; 86593; 86850; 86900; 86901